=== PATIENT | female | born 1945 | race Caucasian/White ===

== ENCOUNTER 2021-12-29 08:02 | Outpatient (CLI) | payer MEDICARE, BC, SELFPAY ==
--- NOTE | 2021-12-29 08:15 | MR_ITS ---
[address] [address] Phone:?[phone] Fax:?[phone] Referring Physician Information: Rachel Hollingsworth [address] [facility] [address] Phone:?[phone] Fax:[phone] Patient:?Gail Jorge D.O.B:?1945 Sex:?Female Phone:?[phone] [facility] MRN:?[id number] Exam Date:?12/29/2021 ? EXAM: MRI of the LEFT KNEE, without contrast CLINICAL: Left knee pain. Evaluate menisci. COMPARISONS: None available. TECHNICAL: MR sequences of the left knee: sagittals: PD, PDFS coronals: PD, T2FS axials: PD, PDFS SEDATION: None. CONTRAST: None. FINDINGS: Ligaments: ACL: Intact ACL anteromedial and posterolateral bundles, without sprain or tear. PCL: Intact PCL, without acute or chronic injury. MCL: Intact MCL superficial and deep layers, without injury. LCL: Intact LCL, without injury. Posterolateral corner: Popliteus, biceps femoris, iliotibial band, and the popliteofibular ligament appear intact. Posteromedial corner: Semimembranosus, pes anserine tendons and posterior oblique ligament appear intact. Extensor mechanism: Patellar tendon: Intact, without tendinopathy. Quadriceps tendon: Intact, without tendinopathy. Retinacula: Medial and lateral retinacula are intact. Fat pads: Unremarkable infrapatellar Hoffa's, quadriceps and prefemoral fat pads. Patellofemoral joint: Patella: Grade 2-3 chondral loss with deep chondral fissuring/delamination involves the lateral facet on axial series 4 image 12. Trochlea: No significant chondromalacia. Medial compartment: Medial meniscus: Ill-defined degenerative fraying/tearing involves the free edge of the posterior horn on sagittal series 6 image 11-13. Evaluation of the body segment is limited on the coronal PD sequence by prominent artifact, no convincing evidence of significant tear involving the body segment on the coronal STIR sequence. Anterior horn and anterior root fibers appear intact. No significant meniscal displacement. Medial cartilage: Small 4 mm segment of high-grade chondral loss or deep chondral delamination involves the posterior nonweightbearing medial femoral condyle on axial series 4 image 15. Medial compartment cartilage otherwise appears maintained. Lateral compartment: Lateral meniscus: There is horizontal dominant tearing involving the body segment. Mild degenerative fraying/tearing involving the free edge of the anterior and posterior horns. Ill-defined degenerative fraying/tearing involves the posterior root on sagittal series 6 images 18-19. Parameniscal cyst formation is seen along the periphery of the body segment measuring approximately 25 x 18 x 6 mm in size as seen on axial series 4 images 18-21 and coronal series 8 images 13-17. Lateral cartilage: No significant chondromalacia. Knee joint: Effusion: Physiologic left knee effusion. Intra-articular bodies:?No convincing bodies identified. Popliteal cyst: None. Bones: No suspicious bone marrow signal alteration or fracture line. IMPRESSION: 1. Tearing of the body segment lateral meniscus with parameniscal cyst formation along the periphery of the body segment as above. Mild degenerative fraying/tearing involves the free edge of the anterior and posterior horns lateral meniscus with ill-defined degenerative fraying/tearing involving the posterior root fibers of the lateral meniscus. 2. Ill-defined degenerative fraying/tearing involving the free edge of the posterior horn medial meniscus. 3. Grade 2-3 chondral loss with deep chondral fissuring and delamination involving the lateral patellar facet. Small 4 mm segment of high-grade chondral loss or deep chondral delamination involving the posterior nonweightbearing medial femoral condyle. 4. No evidence of ligamentous injury or fracture. [facility] Electronically signed on 12/29/2021 2:36:00 PM by Stan Vasquez D.O.
== END 2021-12-29 08:03 | disposition home or self-care (01) ==
LOC: MRI 08:05
PROVIDERS: PCP Nurse Practitioner Family; Visit Provider Physician Assistant
DX: M25.562 Pain in left knee (principal); M23.242 Derangement of anterior horn of lateral meniscus due to old tear or injury, left knee; M23.252 Derangement of posterior horn of lateral meniscus due to old tear or injury, left knee; M23.222 Derangement of posterior horn of medial meniscus due to old tear or injury, left knee
CPT/HCPCS: 73721

== ENCOUNTER 2024-07-03 13:26 | Outpatient (CLI) | payer MEDICARE, BC, SELFPAY ==
--- NOTE | 2024-07-03 13:45 | MR_ITS ---
EXAM: MRI OF THE LEFT WRIST, WITHOUT CONTRAST CLINICAL: Evaluate for small finger tendon rupture. COMPARISONS: X-rays 06/11/24. TECHNICAL: Multiplanar multisequence MRI of the left wrist was obtained. SEDATION: None. CONTRAST: None. FINDINGS: Evaluation of the obtained sequences is relatively limited by motion artifact. Joints/Osseous structures: Mild changes of arthrosis are seen to involve the first CMC joint. Small osseous cystic changes involve the ulnar styloid. No evidence of acute osseous fracture or dislocation. No sizable joint effusion. TFCC: There is ill-defined tearing seen to involve the majority of the triangular fibrocartilage disc proper including high-grade tearing/disruption involving the triangular fibrocartilage disc proper. Ligaments: Scapholunate: No sprain/tear. Lunotriquetral: No sprain/tear. Tendons: Flexors: Intact without significant tendinosis or tenosynovitis. Extensors: ECU & 6th extensor compartment: No significant tendinosis, tear or tenosynovitis. 1st - 5th extensor compartments: There is complete full-thickness rupture of the extensor digiti minimi tendon near the level of the fifth CMC joint with retraction of the torn tendon by approximately 6.5 cm to the level of the distal ulna. Remaining extensor tendons appear intact and unremarkable. Neurovascular: Median: Unremarkable carpal tunnel without convincing neuritis or intrinsic/extrinsic masses. Ulnar: Unremarkable Guyon's canal without intrinsic/extrinsic masses. IMPRESSION: 1. Complete full-thickness rupture of the extensor digiti minimi tendon near the level of the fifth CMC joint with proximal tendon retraction of approximately 6.5 cm to the level of the distal ulna. 2. Ill-defined tearing throughout the majority of the TFCC with high-grade tearing/disruption involving the triangular fibrocartilage disc proper. 3. Mild changes of arthrosis involving the first CMC joint. [facility] Electronically signed on 07/04/2024 8:13:00 AM by Stan Vasquez D.O.
--- NOTE | 2024-07-03 14:30 | MR_ITS ---
EXAM: MRI OF THE LEFT FIFTH FINGER, WITHOUT CONTRAST CLINICAL: Evaluate for small finger tendon rupture. COMPARISONS: X-rays 06/11/24. TECHNICAL: Multiplanar multisequence MRI of the left fifth finger was obtained. SEDATION: None. CONTRAST: None. FINDINGS: Evaluation of obtained sequences is relatively limited by artifact. There is full-thickness retracted rupture of the extensor digiti minimi tendon as described on the dedicated wrist MRI exam. The flexor tendons of the fifth digit are intact. Collateral ligamentous structures of the fifth digit appear intact as visualized. No evidence of bone marrow edema or acute fracture involving the fifth digit. Small degenerative cystic change involves the head of the distal third metacarpal. Changes of arthrosis are seen to involve the first IP joint. IMPRESSION: 1. Full-thickness retracted rupture of the extensor digiti minimi tendon as described on the wrist MRI exam. 2. No evidence of fracture involving the fifth digit. 3. Changes of arthrosis at the first IP joint with small degenerative cystic change involving the head of the distal third metacarpal. [facility] Electronically signed on 07/04/2024 8:13:00 AM by Stan Vasquez D.O.
== END 2024-07-03 13:27 | disposition home or self-care (01) ==
LOC: MRI 13:30
PROVIDERS: PCP Family Medicine; Visit Provider Physician Assistant
DX: S56.418A Strain of extensor muscle, fascia and tendon of left little finger at forearm level, initial encounter (principal); M19.042 Primary osteoarthritis, left hand
CPT/HCPCS: 73218; 73221

== ENCOUNTER 2024-10-30 09:02 | Outpatient (CLI) | payer MEDICARE, BC, SELFPAY ==
--- NOTE | 2024-10-30 09:15 | MR_ITS ---
[address] [address] Phone:?[phone] Fax:?[phone] Referring Physician Information: Rachel Hollingsworth [address] [facility] [address] Phone:?[phone] Fax:?[phone] Patient:?Scooter Jorge D.O.B:?1945 Sex:?Female Phone:?[phone] [facility] MRN:?[id number] Exam Date:?10/30/2024 EXAM: MRI EXAMINATION OF THE RIGHT HIP CLINICAL INFORMATION: Female, 79 years old, with right hip pain. INDICATION: Evaluate for occult fracture or bursitis. PRIOR SURGERY: None reported. PLAIN FILMS: Radiographs dated 10/24/2024. COMPARISONS: No prior MRIs available. TECHNICAL INFORMATION: Using a 1.5T MR scanner and a localizing surface coil: coronals: PD, T2 sagittals: PD, T2 oblique axials: PD straight axials: PDFS coronals: T1, STIR of pelvis and hips SEDATION: None CONTRAST: None FINDINGS: Hip joint: Small hip effusion. Mild-moderate generalized thinning the articular cartilage of the right hip joint, without convincing full-thickness chondral defect/loss. No intra-articular bodies. Labrum: Intrasubstance degeneration and poorly defined fraying/tearing of the anterior through superior labrum. No paralabral cyst. Proximal femur: No femoral occult fracture, stress injury, marrow edema or osteonecrosis. Normal femoral head/neck junction offset. No fibrocystic change. Minimal marginal osteophytosis. No convincing femoral cam morphology. Acetabulum: Mild marginal osteophytosis. No stress/occult fracture or periacetabular ossicle. Version: Decreased cranial acetabular anteversion borders on retroversion. Coverage: Right lateral center edge (CE) angle measures approximately 37? (normal 25?-39?), midline coronal series 4 image 12, corrected for pelvic obliquity. Ligamentum teres: Ligamentum teres is intact and unremarkable. Iliofemoral ligament: The iliofemoral ligament is intact without thickening. Pelvis osseous structures: Sacral ala and sacroiliac joints: No stress/insufficiency fractures or marrow edema/pathology. No demonstrable sacroiliitis. Pubic rami and pubic symphysis: Mild hypertrophy and irregularity of the pubic symphysis, without stress/occult fracture or evidence of osteitis pubis. Myotendinous structures: Gluteus abductors: Moderate tendinopathy and intermediate grade attritional tearing of gluteus minimus (axial PDFS series 7 images 10-17). Gluteus medius is unremarkable. Adductors: No demonstrable tendinopathy or strain/tear. Hamstrings: Mild bilateral common hamstrings tendinopathy without tear. Flexors: Intact iliopsoas and rectus femoris, without strain/tear. External rotators: Intact, without demonstrable ischiofemoral impingement. Gluteal aponeurotic fascia and IT band: Unremarkable. Bursae: No demonstrable trochanteric, iliopsoas, or iliopectineal bursitis. Intrapelvic contents: Free fluid: No free fluid seen within the pelvis. Pelvic viscera: No discrete intrapelvic mass is identified. Lymph nodes: No lymphadenopathy by MRI size criteria. Neurovascular structures: No discrete cyst, mass or other compression upon the portions visualized of sciatic or femoral nerves. Lumbar spine: Near-complete osseous fusion is present at L4-5 and L5-S1 with disc desiccation and disc height loss at L3-4. IMPRESSION: 1. Moderate tendinopathy and intermediate grade attritional tearing of gluteus minimus. 2. Mild osteoarthritis of the right hip joint. 3. Intrasubstance degeneration and poorly defined fraying/tearing of the anterior through superior labrum. 4. Mild bilateral common hamstrings tendinopathy, without tear. 5. Mild spondylosis at L3-4 with near complete fusion of L4-5 and L5-S1. 6. No fracture or osseous stress reaction. [facility] Electronically signed on 10/30/2024 11:51:00 AM by Duncan Rod M.D.
== END 2024-10-30 09:03 | disposition home or self-care (01) ==
LOC: MRI 09:02
PROVIDERS: PCP Family Medicine; Visit Provider Physician Assistant
DX: M25.551 Pain in right hip (principal); M70.61 Trochanteric bursitis, right hip; M16.11 Unilateral primary osteoarthritis, right hip; M47.896 Other spondylosis, lumbar region; M47.897 Other spondylosis, lumbosacral region
CPT/HCPCS: 73721

== ENCOUNTER 2025-01-27 08:20 | Outpatient (CLI) | payer MEDICARE, BC, SELFPAY ==
[2025-01-27 06:41] VITALS: BP 153/42; PULSE 56; RESP 108; O2SAT 100
[2025-01-27 07:02] VITALS: BP 181/56; PULSE 57; RESP 18; TEMP 36.6
--- NOTE | 2025-01-27 07:51 | P.ORPRC_ITS ---
Procedure Note Date of procedure: 01/27/25 Procedure: PREOPERATIVE DIAGNOSIS: Right hip abductor tendinopathy/greater trochanteric bursitis POSTOPERATIVE DIAGNOSIS: Right hip abductor tendinopathy/greater trochanteric bursitis NAME OF OPERATION: Percutaneous tenotomy SURGEON: Dami Cerda MD [employer] OPERATOR: Deyanira Bridges PA-C ANESTHESIA: Local ESTIMATED BLOOD LOSS: 2 mL. COMPLICATIONS: None. SPECIMENS: None. DRAINS: None. PREOPERATIVE ANTIBIOTICS: None INDICATIONS: The patient is a 79-year-old with a history of right hip pain secondary to the above diagnoses. Despite appropriate non operative management, they continue to have symptoms. Operative intervention was recommended. The risks, benefits and expected outcomes were discussed in detail. These included but were not limited to: Infection, bleeding, injury to blood vessel or nerve, venous thromboembolism. All questions were answered to their satisfaction. PROCEDURE: The patient was placed in the lateral decubitus position. The right hip was imaged in the long and short axes with the ultrasound transducer. Normal acoustic landmarks were identified. We then sterilely prepped and draped the skin, and used a sterile probe cover with sterile gel. Local anesthesia was established with 10 mL of a solution containing 2 % lidocaine without epinephrine, 0.5% Marcaine without epinephrine and sodium bicarbonate. An 11 blade was used to incise the skin. The Tenex TX 2 micro tip was used to treat the abductor tendon for a total of 4 minutes and 0 seconds. The incision was Steri-Stripped closed. A dry dressing was applied. Sponge and needle counts were correct x2. The patient tolerated the procedure well. There were no apparent complications. They were discharged to home in satisfactory condition. PLAN: The patient may weightbear as tolerates. Ice, Tylenol and ibuprofen can be used for discomfort. They may ramp up activity as the hip will allow. They will follow up in the office in 6 weeks to assess their progress.
== END 2025-01-27 08:21 | disposition home or self-care (01) ==
PROVIDERS: PCP Family Medicine; Visit Provider Orthopaedic Surgery
DX: M70.61 Trochanteric bursitis, right hip (principal)
CPT/HCPCS: 27005; 76942; J0665; J2003